=== PATIENT | male | born 1985 | race Caucasian/White ===

== ENCOUNTER 2017-09-27 10:14 | Emergency (ER) | payer OTHER ==
[2017-09-27 10:40] VITALS: BP 131/88
--- NOTE | 2017-09-27 13:09 | UC ---
Mansoor Mancia Stephanie, scribed for Pablo Gallo MD on 09/27/17 at 1147 . FLU HPI - HPI Summary HPI Summary: The pt is a 32 y/o M presenting to with c/o influenza symptoms that began . Symptoms include cough, sinus congestion, sore throat and rhinorrhea. The pt denies fever and myalgia. The pt is taking Tylenol and Aleve when needed. - History of Current Complaint Chief Complaint: UCGeneralIllness Stated Complaint: sore throat, and cough Time Seen by Provider: 09/27/17 11:18 Hx Obtained From: Patient Onset/Duration: Gradual Onset, Lasting Days - 2, Still Present Severity Currently: Mild Pain Intensity: 3 Pain Scale Used: 0-10 Numeric Associated Signs & Symptoms: Positive: Cough, Sore Throat, Nasal Congestion. Negative: Fever, Myalgia - Allergy/Home Medications Allergies/Adverse Reactions: Allergies Allergy/AdvReac Type Severity Reaction Status Date / Time No Known Allergies Allergy Verified 09/27/17 10:40 Home Medications: Home Medications NK [No Home Medications Reported] 09/27/17 [History Confirmed 09/27/17] PMH/Surg Hx/FS Hx/Imm Hx Previously Healthy: Yes - The pt denies past medical hx. - Surgical History Surgical History: None Surgery Procedure, Year, and Place: denies - Family History Known Family History: Positive: Other - lung cancer, cervical cancer - Social History Occupation: Employed Part-time Lives: With Family Alcohol Use: Occasionally Substance Use Type: None Smoking Status (MU): Former Smoker Length of Time of Smoking/Using Tobacco: 6 Have You Smoked in the Last Year: No When Did the Patient Quit Smoking/Using Tobacco: 2013 Review of Systems Constitutional: Negative Skin: Negative Eyes: Negative ENT: Sore Throat, Nasal Discharge, Sinus Congestion Respiratory: Cough Cardiovascular: Negative Gastrointestinal: Negative Genitourinary: Negative Motor: Negative Neurovascular: Negative Musculoskeletal: Negative Neurological: Negative Psychological: Negative All Other Systems Reviewed And Are Negative: Yes Physical Exam Triage Information Reviewed: Yes Vital Signs: Initial Vital Signs Temp 97.5 F 09/27/17 10:35 Pulse 66 09/27/17 10:35 Resp 16 09/27/17 10:35 BP 131/88 09/27/17 10:35 Pulse Ox 99 09/27/17 10:35 Vital Signs Reviewed: Yes - Additional Comments General: Mildly ill-appearing, no pain distress Skin: warm, color reflects adequate perfusion, dry Head: normal Eyes: EOMI, NATHALY ENT: erythema posterior pharynx, uvula midline Neck: anterior cervical lymphadenopathy Respiratory: CTA, breath sounds present Cardiovascular: RRR Abdomen: soft, nontender Bowel: present Musculoskeletal: normal, strength/ROM intact Neurological: normal, sensory/motor intact, A&O x3 Psychological: affect/mood appropriate Flu Course/Dx - Course Course Of Treatment: BP noted and advised to follow up with PCP. Medications reviewed. DISCUSSED RESULTS WITH THE PATIENT AND . - Differential Dx/Diagnosis Provider Diagnoses: VIRAL SYNDROME Discharge - Discharge Plan Condition: Stable Disposition: HOME Patient Education Materials: Viral Syndrome (ED) Forms: *Work Release Referrals: Jamel Reed MD [Primary Care Provider] - Additional Instructions: FOLLOW UP WITH YOUR DOCTOR. RETURN TO THE EMERGENCY DEPARTMENT FOR ANY WORSENING OF YOUR CONDITION OR QUESTIONS OR CONCERNS. Your blood pressure was elevated during todays visit; please follow up with your primary care provider within a week for further evaluation. The documentation as recorded by the Mansoor aguillon Stephanie accurately reflects the service I personally performed and the decisions made by me, Pablo Gallo MD.
== END 2017-09-27 12:15 | disposition home or self-care (01) ==
LOC: UCEAST 10:14
DX: B34.9 Viral infection, unspecified (principal); Z87.891 Personal history of nicotine dependence
CPT/HCPCS: 87502; 87651; 99212; G0463